=== PATIENT | male | born 1995 | race Two or more races ===

== ENCOUNTER 2023-10-04 10:57 | Emergency (ER) | payer OTHER ==
[~2023-10-04] VITALS: Ht 180.3 cm; Wt 81.6 kg
[2023-10-04 11:05] VITALS: BP 127/70; TEMP 98.1
[2023-10-04] MEDS ORDERED: IBUP-1955 PO (12:05)
[2023-10-04 12:17] VITALS: O2SAT 99
== END 2023-10-04 12:18 | disposition home or self-care (01) ==
LOC: ER 11:03
DX: S83.91XA Sprain of unspecified site of right knee, initial encounter (principal); W05.2XXA Fall from non-moving motorized mobility scooter, initial encounter; Y93.89 Activity, other specified; Y92.89 Other specified places as the place of occurrence of the external cause; Y99.8 Other external cause status
CPT/HCPCS: 73564-TC